=== PATIENT | male | born 1925 | race Caucasian/White ===

== ENCOUNTER → 2016-10-27 | Outpatient (CLI) | payer OTHER ==
[~2016-10-27] MED LIST: AMOXICILLIN 50500 MG PO; ATORVASTATIN CA10 MG PO; COUMADIN 4 MG TA4 M1 PO; DILTIAZEM 24HR240 M1 PO; FUROSEMIDE 40 M40 M1 PO; LISINOPRIL10 MG PO; METOPROLOL SUCC25 M1 PO; NISOLDIPINE17 MG PO; ONE DAILY MULT1 EAC2 PO; POTASSIUM20 PO
== END ==
LOC: CAT 12:45
DX: J90 Pleural effusion, not elsewhere classified (principal); R18.8 Other ascites

== ENCOUNTER 2017-01-25 15:27 | Inpatient (IN) | payer OTHER ==
[~2017-01-25] VITALS: Ht 170.2 cm; Wt 50.3 kg
--- NOTE | ~2017-01-25 | CNG ---
[facility] [place] [address] CYTO-NONGYN REPORT PROCEDURE Name: RAMANA DE LA CRUZ Room #: 246-P ADM IN M.R.#: [id number] Admission: 01/25/17 Date of : [birth year] Discharge: Report #: [id number] Path Case #: [id number] CYTOPATHOLOGY REPORT COLLECTION DATE: 01/26/2017 RECEIVED DATE: 01/26/2017 SUBMITTING PHYS: Dr. Micah Sr OTHER PHYS: Dr. Gabriel Newman CLINICAL HISTORY: SOA, AFIB RVR, Pleural effusion, CHF. SPECIMEN(S) RECEIVED: A.Pleural fluid, Left * * * * * * * * * * * * FINAL DIAGNOSIS: A. Pleural fluid, Left: - No malignant cells identified. Mesothelial cells and predominantly chronic inflammatory cells present in a background of debris. PATHOLOGIST: Virginia Peralta M.D. REPORT ELECTRONICALLY SIGNED BY: Virginia Peralta M.D. DATE/TIME: 01/27/2017 13:56 * * * * * * * * * * * * GROSS PATHOLOGY: A. Pleural fluid, Left: The specimen is submitted unfixed, labeled "Ramana De La Cruz". Received by the Cytology Department is 25 mL of clear yellow fluid. One ThinPrep slide and a formalin fixed cell block were prepared. (clt 01.26.2017) CLOTH PATTERN MAKER(S): LENA Cisneros([facility]) INITIAL CPT CODE(S): A; 68472, 92797 Professional services performed by [facility] at [facility] [address], [place] [address] Technical services performed by [facility] at [address] [place] [address]., [address], [place] [address]. [facility] [address] [place] [address], [address] [facility] [address] [place] [address] CYTO-NONGYN REPORT PROCEDURE Name: RAMANA DE LA CRUZ Room #: 246-P ADM IN M.R.#: [id number] Admission: 01/25/17 Date of : [birth year] Discharge: Report #: [id number] Path Case #: [id number] [place] [address] PHONE: [phone] DIRECTOR: Dillan Lee M.D. * * * END OF REPORT * * *
--- NOTE | ~2017-01-25 | HC ---
[facility] [place] [address] CONSULTATION Name: RAMANA DE LA CRUZ Room #: 458-P [facility] IN M.R.#: [id number] Admission: 01/25/17 Attend Phys: Micah Sr DO Discharge: Date of : [birth year] Report #: [id number] THIS REPORT FOR: //name// CC: Gabriel Sr HISTORY OF PRESENT ILLNESS: An 89-year-old male who is known to myself. He had 2-3 days of increasing shortness of breath and dyspnea. He states somebody cut back his diuretic, I am not sure if this is true. He has been maintained on Lasix 40, metoprolol 25, potassium, warfarin, atorvastatin and a baby aspirin. He has permanent underlying AFib. I saw him in November. He had recently been hospitalized at [facility] prior to that for some questionable TIA, but that had resolved. His Lasix was stopped at that time for elevated creatinine, but this is a baseline creatinine in the 2-3 range. He is anticoagulated on Coumadin and has been therapeutic. There have been no current events. His ejection fraction has been 30-35% with severe aortic valve stenosis somewhere in the 0.7-0.8 cm2, moderate MR and TR and that was from an echo done in October, but not significantly changed. He has had no syncope, but definitely someone who had failure to thrive. He lives with his daughter, Carlitos. 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 PAST MEDICAL HISTORY: Positive for an aortic valve replacement, which is showing some significant stenosis here. He had a recent echo done here in December and EF was 20% with significant diastolic dysfunction, biatrial enlargement, prosthetic mechanical aortic valve with a moderate gradient, but acceptable. Mitral annular calcification with mild MR and TR and a PA pressure of 40. I will review the echo from the office to look in at a higher gradient across the aortic valve. PAST MEDICAL HISTORY: Positive for the prosthetic aortic valve as I stated, DJD, hypertension, hypercholesterolemia, stomach cancer, prior tobacco, COPD and hernia repair. FAMILY HISTORY: Negative for premature coronary disease. ALLERGIES: No known drug allergies. SOCIAL HISTORY: He is , five children. He has a beer a day. He has lived on the farm his whole life. No current tobacco. PHYSICAL EXAMINATION: GENERAL: He is mildly dyspneic. He has oxygen in place. VITAL SIGNS: Blood pressure 126/60, pulse 70s and irregular (he did initially present with AFib, RVR on 5 mg Cardizem currently). HEENT: Eyes reveal arcus senilis, no xanthelasmas. Pharynx has dry mucous membranes. NECK: Shows preserved upstrokes, mild JVD is noted. [facility] [address] [place] [address] CONSULTATION Name: DOROTHYRAMANA AN Room #: 458-P [facility] IN M.R.#: [id number] Admission: 01/25/17 Attend Phys: Micah Sr DO Discharge: Date of : [birth year] Report #: [id number] LUNGS: Have prolonged expiratory phase, diminished in the bases bilaterally. CARDIOVASCULAR: Irregularly irregular, S1. Mechanical second heart sound, faint systolic murmur. ABDOMEN: Slightly protuberant, nontender. There is some tenderness in the right lower quadrant. EXTREMITIES: Reveal trace edema. Distal pulses diminished. NEUROLOGIC: Nonfocal. SKIN: Warm and dry with multiple areas of some actinic keratosis and some mild venous stasis changes in the lower extremities. MUSCULOSKELETAL: Generalized arthritic changes. I did not ambulate him. ASSESSMENT: 1. Acute on chronic systolic failure. 2. 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 3. 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 4. Chronic kidney disease, stage IV. 5. Primary hypertension. 6. Hypercholesterolemia. 7. Degenerative joint disease. 8. Persistent/permanent atrial fibrillation. DIAGNOSTIC DATA: The CT of the chest reveals moderately large bilateral pleural effusions with bibasilar atelectasis. There is a small amount of abdominal pelvic ascites. Chest x-ray has bilateral infiltrates and atelectasis changes with effusions, left greater than right. LABORATORY WORK: Creatinine 2.8, potassium 4.4. His creatinine has been in the 2 since 2013. Troponin is 0.23, not diagnostic in light of his renal failure and age. His proBNP is 70,000. H and H is 10.2 and 32, white count 5000 and platelets 189. RECOMMENDATIONS AND PLAN: We will give IV Lasix tonight. We will continue the low dose Cardizem drip. We will continue chronic anticoagulation, although no need to do anything right now with INR of 2.7, repeat daily INR. May need also pulmonary to weigh in on his bilateral effusions with consider to a possible thoracentesis here, diuresis, daily weights, fluid and sodium restriction and we will continue to follow with you. <ELECTRONICALLY SIGNED> By: Gabriel Torres MD, FACC 01/30/17 1646 2211 0040 Gabriel Torres MD, FACC /nt
--- NOTE | ~2017-01-25 | HC ---
[facility] [place] [address] CONSULTATION Name: RAMANA DE LA CRUZ JR Room #: 246-P [facility] IN M.R.#: [id number] Admission: 01/25/17 Attend Phys: Micah Sr DO Discharge: Date of : [birth year] Report #: [id number] THIS REPORT FOR: //name// CC: Gabriel Sr PRIMARY CARE PHYSICIAN: Ming Newman DO REFERRAL PHYSICIAN: Micah Sr DO REASON FOR REFERRAL: Acute respiratory distress. HISTORY OF PRESENT ILLNESS: The patient is an 89-year-old white male who presented to the Emergency Room with progressive dyspnea. He was found to have bilateral pleural effusion. The patient was also found to be in atrial fibrillation with rapid ventricular response. He has been treated for heart failure. Earlier today, he underwent left thoracentesis. Shortly after the procedure, patient complained of severe dyspnea. A stat portable chest x-ray shows approximately 15-20% left-sided pneumothorax. A pulmonary consultation was requested. The patient appears dyspneic in moderate distress. He denies any chest pain. Otherwise, history is somewhat limited as patient is in moderate distress. PAST MEDICAL HISTORY: Notable for coronary artery disease with severe ischemic cardiomyopathy, ejection fraction approximately 15%; status post prosthetic aortic valve with moderate gradient; chronic systolic heart failure; chronic kidney disease, stage 4; hypertension; degenerative joint disease; hypercholesterolemia; pulmonary atrial fibrillation; COPD; history of tobacco use and history of gastric cancer. PAST SURGICAL HISTORY: As mentioned above including herniorrhaphy. ALLERGIES: None to medications. HOME MEDICATIONS: List reviewed. These include lisinopril, Lasix, diltiazem, Coumadin, Toprol, potassium supplements, aspirin, Lipitor and multivitamins. FAMILY HISTORY: Noncontributory. SOCIAL HISTORY: He is . He has 5 children. History suggests he drinks about beer a day. He denies any history of tobacco use. Medical directive DNR as of earlier today. REVIEW OF SYSTEMS: [facility] [address] [place] [address] CONSULTATION Name: RAMANA DE LA CRUZ Room #: 246-P [facility] IN ..#: [id number] Admission: 01/25/17 Attend Phys: Micah Sr DO Discharge: Date of : [birth year] Report #: [id number] Deferred as patient is in moderate respiratory distress. PHYSICAL EXAMINATION: GENERAL: On exam, he is tachypneic. Appears frail and weak. VITAL SIGNS: Temperature is 97.4 degrees Fahrenheit, pulse is 70, respiratory rate is 22, blood pressure 142/79 mmHg and saturation 93%. HEENT: Normocephalic and atraumatic. NECK: Supple without any lymphadenopathy or thyromegaly. CHEST: Breath sounds are decreased bilaterally. No obvious wheezes. Few scattered crackles in the bases. CARDIOVASCULAR: Irregularly irregular. No obvious murmurs or gallop. Pulses are 2+/4+ bilaterally. ABDOMEN: Soft and nontender. No organomegaly or masses felt. GENITOURINARY: Deferred. RECTAL: Deferred. EXTREMITIES: No cyanosis, clubbing or edema. LABORATORY DATA: Chest x-ray shows oizxguio-jx-hjele bilateral pleural effusion, greater in the left than the right. CT chest and abdomen and pelvis showing bilateral pleural effusion as mentioned above. It appears to be chronic and recurrent. Small mild abdominal pelvis ascites. Otherwise, no acute intraabdominal pathology seen. Thoracentesis was performed earlier today, the radiologist was able to withdraw 2200 mL of pleural fluid. Preliminary pleural fluid studies shows the RCB being 345, WBC 64, predominantly lymphocytes. The rest of the labs are pending. KUB was unremarkable, except for small left pneumothorax. Electrolytes: Sodium 144, potassium 4.0, chloride is 108 and CO2 is 22. BUN is 46 and creatinine is 2.7. His baseline creatinine appears to be in 2.5. WBC 4400, hemoglobin is 9.7 and platelets are normal. INR is 2.5. Arterial blood gas revealed pH 7.24, pCO2 32 and pO2 58 on 6 liters of O2. IMPRESSION: 1. Acute respiratory distress in this 89-year-old white male secondary to left-sided pneumothorax along with ongoing acute on chronic heart failure and bilateral pleural effusions. 2. Acute hypoxic respiratory failure due to above. 3. Acute on chronic kidney disease with metabolic acidosis with partial respiratory compensation. 4. Severe ischemic cardiomyopathy, ejection fraction approximately 15-20%, acute on chronic systolic heart failure. 5. Status post prosthetic aortic valve replacement. 6. Permanent atrial fibrillation, on chronic anticoagulation. 7. Medical directive, DNR. RECOMMENDATION: We will consult IR for placement of chest tube. Keep O2 saturation greater than 90%. Agree with morphine for dyspnea and pain control. [address] [address] CONSULTATION Name: RAMANA DE LA CRUZ Room #: 246-P [facility] IN M.R.#: [id number] Admission: 01/25/17 Attend Phys: Micah Sr, DO Discharge: Date of : [birth year] Report #: [id number] Sr along with patient's children. They are in agreement in proceeding with chest tube placement. They are also understanding that if the patient's condition deteriorates, they would proceed with comfort care. Thank you for this consultation. By: 1644 0119 JOSE MIGUEL Loredo /morris
--- NOTE | ~2017-01-25 | EKG ---
[address] [place] [address] ELECTROCARDIOGRAM REPORT Name: RAMANA DE LA CRUZ Room #: 211-P ADM IN M.R.#: [id number] Admission: 01/25/17 Attend Phys: Micah Sr DO Discharge: Date of : [birth year] Report #: [id number] THIS REPORT FOR: //name// 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: : 1925 Requested By: Jeffery Rojo Order Number: [id number] MD: Chris Pelletier Measurements Intervals [place] Rate: 100 P: [place]: QRS: -57 QRSD: 110 T: 133 QT: 366 QTc: 473 Interpretive Statements Atrial fibrillation Anterior infarct, old Nonspecific ST and T wave abnormality Compared to ECG 12/11/2016 08:43:02 No significant change was found Electronically Signed On 01-26-2017 9:50:17 CDT by Chris Pelletier [email or web address] <ELECTRONICALLY SIGNED> By: Chris Pelletier MD, [facility] 01/26/17 0950 1556 1556 Chris Pelletier MD, [facility] /EPI
--- NOTE | ~2017-01-25 | HC ---
[facility] [place] [address] CONSULTATION Name: RAMANA DE LA CRUZ Room #: 458-P [facility] IN M.R.#: [id number] Admission: 01/25/17 Attend Phys: Micah Sr DO Discharge: Date of : [birth year] Report #: [id number] THIS REPORT FOR: //name// CC: Gabriel Sr REQUESTING PHYSICIAN: Lexi nurse practitioner. REASON FOR CONSULTATION: Palliative. HISTORY OF PRESENT ILLNESS: The patient is an 89-year-old male who presented to [facility] on 01/25. At that time, he had had 2-3 days of increasing shortness of breath. He reports that he had had a decrease in his diuretic recently. The patient additionally has underlying atrial fibrillation. He also has a history of severe CHF. His ejection fraction recently had been 30%-35% with severe aortic valve stenosis and moderate MR and TR from an echo in October. On echocardiogram here, it was 20%, found to have pneumothorax and additional significant pleural effusion, currently with chest tube with significant drainage, suspected to have acute exacerbation of systolic heart failure, thus causing acute hypoxic respiratory failure. The patient, at this time, reports that he has improvement in his overall feelings of dyspnea and improvement as far as no significant pain or discomfort. He has concern for his overall condition and has been discussing with several physicians that his overall prognosis is poor. The patient is amenable at this time to any efforts that may get him to home. PAST MEDICAL HISTORY: Significant for combined congestive heart failure, aortic valve stenosis, mitral regurg, tricuspid regurg, atrial fibrillation with past history of RVR, history of non-ST elevation myocardial infarction. PAST SURGICAL HISTORY: Dental extraction, history of aortic valve replacement. SOCIAL HISTORY: Former smoker. Daughter is first contact for patient, currently DNR status, was living at home with his daughter previous to hospitalization. ALLERGIES: No known drug allergies. MEDICATIONS: Prior to arrival, he was on lisinopril 10 mg daily, Lasix 40 mg daily, diltiazem 240 mg daily, warfarin 2 mg daily, Toprol 25 mg half tab daily, potassium chloride 10 mEq daily, aspirin 81 mg daily and Lipitor 10 mg daily. FAMILY HISTORY: Noncontributory. REVIEW OF SYSTEMS: GENERAL: The patient denies any significant recent weight changes. Has a [facility] [address] [place] [address] CONSULTATION Name: RAMANA DE LA CRUZ Room #: 458-P [facility] IN M.R.#: [id number] Admission: 01/25/17 Attend Phys: Micah Sr DO Discharge: Date of : [birth year] Report #: [id number] history longstanding of edema. RESPIRATORY: Shortness of breath, cough noted, though these are improved. CARDIOVASCULAR: Denies current chest pain. ABDOMEN: Denies nausea, vomiting, constipation or diarrhea. NEUROLOGIC: Denies significant memory loss at this time. PHYSICAL EXAMINATION: VITAL SIGNS: At visit today, pulse 104, blood pressure 116/70 on 2 liters nasal cannula. The patient was satting 98%, respirations 16, temperature 36.7. GENERAL: The patient is alert. He is oriented x 3, no acute distress at this time. HEENT: Extraocular muscles appear intact. Normocephalic and atraumatic. RESPIRATORY: Lungs are clear to auscultation bilaterally with the exception of lower lobes blunted respiratory sounds, does have some minimal crackles otherwise. CARDIOVASCULAR: irregular without murmurs. ABDOMEN: Soft, nontender to palpation. S4. EXTREMITIES: Moves all extremities without difficulty. NEUROLOGIC: Appears to have good attention level, alert. LABORATORY DATA: Include hemoglobin 8.9, platelet 134. INR 2.1, creatinine 3.7, albumin 2.5. ASSESSMENT AND PLAN: 1. Acute hypoxic respiratory failure. This is again secondary to congestive heart failure most likely and also due to pneumothorax. In addition, I have discussed with the patient with regards to the management of this. The patient is amenable to some sort of hospice management. I have discussed with him extensively today and spent approximately 30 minutes on advanced care planning. I was trying to reach daughter today, unfortunately was unable to reach, left a message with her with regards to care. The patient confirmed ps-lgq-yhwdnkiseoj status. The patient is amenable to either he would prefer home hospice or hospice facility dedicated. 2. Pneumothorax, status post chest tube. Appreciate pulmonary recs. 3. Severe ischemic cardiomyopathy, ejection fraction 20%. Again contributing to above. 4. Pleural effusion as above. I will continue to follow with this patient with regards to care and hopefully will reach patient's daughter tomorrow with whom he would like me to discuss with regards to care outpatient from the hospital setting. By: 1807 0713 Luke Weir, DO /nt
--- NOTE | ~2017-01-25 | HC ---
[facility] [place] [address] CONSULTATION Name: RAMANA DE LA CRUZ Room #: 246-P [facility] IN M.R.#: [id number] Admission: 01/25/17 Attend Phys: Micah Sr DO Discharge: Date of : [birth year] Report #: [id number] THIS REPORT FOR: //name// CC: Gabriel Sr REASON FOR CONSULTATION: CKD. REASON FOR PRESENTATION: Shortness of breath. HISTORY OF PRESENT ILLNESS: This is an 89-year-old with advanced cardiomyopathy, who has terminal heart failure with an ejection fraction of around 20%. He is also known to have aortic valve replacement. He has very significant valvular abnormality. He is followed by Dr. Torres. He carries a diagnosis of chronic kidney disease with a creatinine of around 2.0. He presented with worsening shortness of breath. He has had repeated issues with pleural effusion. His shortness of breath was constant and getting worse. There was no edema. He presented to the hospital for further evaluation and management. He had the thoracentesis that was complicated by left pneumothorax. I was consulted to manage his chronic kidney disease. PAST MEDICAL HISTORY: 1. Status post aortic valve replacement with restenosis. 2. Terminal heart failure with ejection fraction of around 20%. 3. Hypertension. 4. COPD. 5. Hyperlipidemia. 6. Stomach cancer. FAMILY HISTORY: The daughter is significant for hypertension. ALLERGIES: No known drug allergies. SOCIAL HISTORY: He is . He actually lives in a farm with his family. MEDICATIONS: 1. Tamsulosin. 2. Warfarin. 3. Atorvastatin. 4. Metoprolol. 5. Aspirin. 6. Furosemide. REVIEW OF SYSTEMS: GENERAL: No fever or chills. CARDIOVASCULAR: Significant for chest pain and shortness of breath. [facility] [address] [place] [address] CONSULTATION Name: DOROTHYRAMANA NATALIYA Room #: 246-P [facility] IN M.R.#: [id number] Admission: 01/25/17 Attend Phys: Micah Sr DO Discharge: Date of : [birth year] Report #: [id number] PULMONARY: Significant for shortness of breath. GASTROINTESTINAL: No nausea or vomiting. GENITOURINARY: No frequency, no urgency. NEUROLOGICAL: Significant for weakness. PHYSICAL EXAMINATION: GENERAL: The patient is in the ICU. VITAL SIGNS: Most recent vitals revealed a blood pressure of 89/35. HEAD AND NECK: No jugular venous distention. CHEST: Decreased air entry bilaterally with crackles. CARDIOVASCULAR: No rub detected. ABDOMEN: Soft, nontender. LOWER EXTREMITIES: No edema. ASSESSMENT, IMPRESSION, PLAN: 1. Chronic kidney disease. 2. Pulmonary edema. 3. Pleural effusion, status post pneumothorax. 4. Terminal heart failure. 5. Multivalvular issues. This seems to be a very terminal and grim overall prognosis. His kidney function seems to be stable as he is maintained his creatinine in the 2.5-3 range. We will initiate IV diuresis. He is status post thoracentesis with complicated pneumothorax, status post chest tube. He is on plenty of blood pressure medications and his blood pressure is on the low side. I will talk with the Cardiology team about backing off some of his blood pressure medications. He is currently maintained on metoprolol, Cardizem, PETROS inhibitor which has been held. I will reduce the dose of his Lasix. Unfortunately, this is a very narrow therapeutic window and I am not really sure how much can we attain in this situation. We will address with the family members. <ELECTRONICALLY SIGNED> By: Suzanne Toribio MD 01/29/17 0803 0749 0815 Suzanne Toribio MD /nt
--- NOTE | ~2017-01-25 | EKG ---
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 : 1925 Requested By: Micah Sr Order Number: [id number] MD: Chris Pelletier Measurements Intervals [place] Rate: 77 P: [place]: QRS: -15 QRSD: 133 T: 45 QT: 452 QTc: 512 Interpretive Statements Atrial fibrillation ventricular premature complexes Nonspecific intraventricular conduction delay Poor R wave progression Baseline wander in lead(s) V4,V5 Compared to ECG 01/25/2017 15:56:55 Ventricular premature complex(es) now present Electronically Signed On 01-30-2017 7:56:05 CDT by Chris Pelletier [email or web address] <ELECTRONICALLY SIGNED> By: Chris Pelletier MD, FACC 01/30/17 0756 1601 1601 Chris Pelletier MD, [facility] /EPI
[~2017-01-25 15:27] MED LIST changes: +ASPIR 8181 MG PO; +CENTRUM SILVER1 EAC2 PO; +COUMADIN 2 MG TA2 M1 PO; +COUMADIN 3 MG TA3 M1 PO; +FLOMAX0.4 MG PO; +KEFLEX500 MG PO; +KLOR-CON 1010 MEQ PO; +LASIX 20 MG TAB20 MG PO; +LIPITOR 10 MG10 M1 PO; +LOPRESSOR25 PO; +TOPROL XL25 MG PO; +TORSEMIDE5 MG PO
[2017-01-25 15:28] VITALS: BP 128/71
[2017-01-25 16:02] LABS: ABSOLUTE NEUTROPHILS 3.2 thou/uL (1.4-8.2); BASOPHILS 0.7 % (0.0-2.0); EOSINOPHILS 1.2 % (0.0-3.0); HEMOGLOBIN 10.2 gm/dL (14.0-18.0); LYMPHOCYTES 22.5 % (24.0-44.0); MANUAL DIFF NO; MCH 30.6 pg (26.0-34.0); MCV 95.6 fL (80.0-100.0); MONOCYTES 11.8 % (1.0-8.0); PLATELET COUNT 189 thou/uL (150-400); POLYS 63.8 % (36.0-66.0); RBC 3.35 mil/uL (4.50-6.00); RDW 17.9 % (10.5-14.5); WBC 5.1 thou/uL (4.0-11.0)
[2017-01-25 16:04] LABS: CALCIUM 8.1 mg/dL (8.5-10.1); CREATININE 2.8 mg/dL (0.7-1.3); POTASSIUM 4.4 mmol/L (3.5-5.1)
[2017-01-25 16:13] LABS: ALBUMIN 3.4 g/dL (3.4-5.0); TOTAL BILIRUBIN 0.5 mg/dL (<0.1-1.0); TOTAL PROTEIN 6.8 g/dL (6.4-8.2); TROPONIN-I 0.23 ng/mL (<0.04-0.07)
[2017-01-25 16:15] LABS: INR 2.7; PROTIME 25.8 Seconds (9.3-11.4)
[2017-01-25 17:17] VITALS: BP 125/69
[2017-01-25 18:57] VITALS: BP 136/71
[2017-01-25 20:03] VITALS: BP 127/60
[2017-01-25 22:49] LABS: CALCIUM 7.9 mg/dL (8.5-10.1); CREATININE 2.7 mg/dL (0.7-1.3); POTASSIUM 4.4 mmol/L (3.5-5.1)
[2017-01-25 22:50] LABS: MAGNESIUM 2.2 mg/dL (1.8-2.4)
[2017-01-25 23:20] VITALS: BP 129/81
[2017-01-26] VITALS (14 sets, daily range): BP systolic 65–143; BP diastolic 37–79
[2017-01-26 03:59] LABS: ALBUMIN 3.1 g/dL (3.4-5.0); CALCIUM 8.1 mg/dL (8.5-10.1); CREATININE 2.6 mg/dL (0.7-1.3); MAGNESIUM 2.1 mg/dL (1.8-2.4); POTASSIUM 4.1 mmol/L (3.5-5.1); TOTAL BILIRUBIN 0.5 mg/dL (<0.1-1.0); TOTAL PROTEIN 6.7 g/dL (6.4-8.2)
[2017-01-26 09:15] LABS: HEMATOCRIT 31.6 % (42.0-52.0); HEMOGLOBIN 9.9 gm/dL (14.0-18.0); MCHC 31.4 g/dL (28.0-37.0); MCV 95.4 fL (80.0-100.0); RBC 3.31 mil/uL (4.50-6.00); RDW 17.7 % (10.5-14.5); WBC 4.4 thou/uL (4.0-11.0)
[2017-01-26 09:29] LABS: CALCIUM 8.3 mg/dL (8.5-10.1); CREATININE 2.7 mg/dL (0.7-1.3)
[2017-01-26 09:30] LABS: INR 2.5; PROTIME 25.7 Seconds (9.3-11.4)
[2017-01-26 12:29] LABS: CLARITY CLEAR; COLOR YELLOW; TOTAL VOLUME 57 mL
[2017-01-26 12:42] LABS: BF NUCLEATED CELLS 64; BF RBC 345
[2017-01-26 13:01] LABS: MANUAL DIFF YES
[2017-01-26 13:03] LABS: BF MACROPHAGE 46; BF NEUTROPHILS 3
[2017-01-26 15:57] LABS: ABG SAMPLE TYPE ARTERIAL; BE(vivo) -12.7 mmol/L (-2 to +3); HCO3 13.5 mmol/L (22.0-26.0); O2(CT) 13.2 mL/dL (15.0-23.0); PO2 58.9 mmHg (80.0-100.0); STICK SITE R.BRACHIAL; pH 7.243 (7.360-7.450); sO2 86.5 % (92.0-98.0); tCO2 14.5 mmol/L (24.0-30.0)
[2017-01-26 17:11] LABS: HEMATOCRIT 31.7 % (42.0-52.0); MCH 30.6 pg (26.0-34.0); MCHC 31.5 g/dL (28.0-37.0); MCV 97.2 fL (80.0-100.0); PLATELET COUNT 198 thou/uL (150-400); RBC 3.27 mil/uL (4.50-6.00); RDW 18.2 % (10.5-14.5); WBC 7.3 thou/uL (4.0-11.0)
[2017-01-26 17:12] LABS: MANUAL DIFF YES
[2017-01-26 17:20] LABS: CALCIUM 8.1 mg/dL (8.5-10.1); POTASSIUM 4.3 mmol/L (3.5-5.1)
[2017-01-26 17:25] LABS: INR 2.3; PROTIME 22.9 Seconds (9.3-11.4)
[2017-01-26 17:30] LABS: ABSOLUTE NEUTROPHILS 6.2 thou/uL (1.4-8.2); ANISOCYTOSIS 1+; TOTAL CELL COUNT 100
[2017-01-27] VITALS (24 sets, daily range): BP systolic 80–106; BP diastolic 33–60
[2017-01-27 05:18] LABS: HEMATOCRIT 29.5 % (42.0-52.0); HEMOGLOBIN 9.3 gm/dL (14.0-18.0); MCH 30.2 pg (26.0-34.0); MCHC 31.5 g/dL (28.0-37.0); RBC 3.08 mil/uL (4.50-6.00); RDW 17.5 % (10.5-14.5); WBC 8.4 thou/uL (4.0-11.0)
[2017-01-27 05:30] LABS: ALBUMIN 3.3 g/dL (3.4-5.0); CREATININE 3.2 mg/dL (0.7-1.3); INR 2.5; POTASSIUM 4.9 mmol/L (3.5-5.1); PROTIME 25.2 Seconds (9.3-11.4)
[2017-01-27 13:09] LABS: BODY FLUID AMYLASE 31 U/L (()); BODY FLUID GLUCOSE 146 mg/dL (()); BODY FLUID LDH 85 IU/L (()); BODY FLUID PROTEIN 1.8 g/dL (())
[2017-01-28] VITALS (22 sets, daily range): BP systolic 85–119; BP diastolic 40–70
[2017-01-28 04:31] LABS: HEMATOCRIT 29.3 % (42.0-52.0); HEMOGLOBIN 9.3 gm/dL (14.0-18.0); MCH 30.1 pg (26.0-34.0); MCHC 31.8 g/dL (28.0-37.0); MCV 94.7 fL (80.0-100.0); RBC 3.1 mil/uL (4.50-6.00); RDW 17.3 % (10.5-14.5); WBC 8.1 thou/uL (4.0-11.0)
[2017-01-28 04:39] LABS: INR 3.3; PROTIME 33.2 Seconds (9.3-11.4)
[2017-01-28 04:41] LABS: ALBUMIN 3.1 g/dL (3.4-5.0); CALCIUM 7.8 mg/dL (8.5-10.1); PHOSPHORUS 5.5 mg/dL (2.5-4.9); POTASSIUM 4.8 mmol/L (3.5-5.1)
[2017-01-28 04:43] LABS: CREATININE 4.2 mg/dL (0.7-1.3)
[2017-01-29] VITALS (14 sets, daily range): BP systolic 97–122; BP diastolic 36–70
[2017-01-29 05:10] LABS: HEMATOCRIT 27.1 % (42.0-52.0); HEMOGLOBIN 8.7 gm/dL (14.0-18.0); MCV 93.6 fL (80.0-100.0); PLATELET COUNT 135 thou/uL (150-400); RBC 2.89 mil/uL (4.50-6.00); WBC 6.8 thou/uL (4.0-11.0)
[2017-01-29 05:18] LABS: INR 3.3; PROTIME 33.5 Seconds (9.3-11.4)
[2017-01-29 05:19] LABS: CALCIUM 7.4 mg/dL (8.5-10.1); CREATININE 4.1 mg/dL (0.7-1.3); POTASSIUM 4.5 mmol/L (3.5-5.1)
[2017-01-29 05:29] LABS: MANUAL DIFF YES
[2017-01-29 06:57] LABS: ABSOLUTE NEUTROPHILS 5.9 thou/uL (1.4-8.2); HYPOCHROMASIA 1+; TOTAL CELL COUNT 100
[2017-01-29 06:58] LABS: ANISOCYTOSIS 1+; OVALOCYTES 1+; POLYCHROMASIA OCCASIONAL; SCHISTOCYTES FEW
[2017-01-30 04:00] VITALS: BP 95/50
[2017-01-30 06:51] LABS: HEMATOCRIT 27.7 % (42.0-52.0); HEMOGLOBIN 8.9 gm/dL (14.0-18.0); MCH 29.8 pg (26.0-34.0); MCHC 31.9 g/dL (28.0-37.0); MCV 93.2 fL (80.0-100.0); PLATELET COUNT 134 thou/uL (150-400); RBC 2.98 mil/uL (4.50-6.00); RDW 16.5 % (10.5-14.5); WBC 5.8 thou/uL (4.0-11.0)
[2017-01-30 06:53] LABS: INR 2.1; MANUAL DIFF YES; PROTIME 20.8 Seconds (9.3-11.4)
[2017-01-30 07:02] LABS: ALBUMIN 2.5 g/dL (3.4-5.0); CALCIUM 7.1 mg/dL (8.5-10.1); CREATININE 3.7 mg/dL (0.7-1.3); PHOSPHORUS 4.1 mg/dL (2.5-4.9); POTASSIUM 3.7 mmol/L (3.5-5.1)
[2017-01-30 07:54] LABS: ABSOLUTE NEUTROPHILS 4.8 thou/uL (1.4-8.2); TOTAL CELL COUNT 100
[2017-01-30 07:55] LABS: ANISOCYTOSIS 1+; OVALOCYTES 1+
[2017-01-30 08:33] VITALS: BP 116/70
[2017-01-30 19:35] VITALS: BP 108/48
[2017-01-31 05:00] VITALS: BP 99/58
[2017-01-31 05:38] LABS: ALBUMIN 2.5 g/dL (3.4-5.0); CALCIUM 7.1 mg/dL (8.5-10.1); CREATININE 3.6 mg/dL (0.7-1.3); PHOSPHORUS 4.4 mg/dL (2.5-4.9); POTASSIUM 3.9 mmol/L (3.5-5.1)
[2017-01-31 08:06] VITALS: BP 93/56
[2017-01-31 13:45] VITALS: BP 100/58
[2017-01-31 15:52] VITALS: BP 95/75
[2017-01-31 21:24] VITALS: BP 137/62
[2017-02-01 04:52] VITALS: BP 108/53
[2017-02-01 06:26] LABS: ALBUMIN 2.6 g/dL (3.4-5.0); CALCIUM 7.4 mg/dL (8.5-10.1); CREATININE 3.2 mg/dL (0.7-1.3); PHOSPHORUS 4.9 mg/dL (2.5-4.9); POTASSIUM 3.8 mmol/L (3.5-5.1)
[2017-02-01 08:04] VITALS: BP 117/66
== END 2017-02-01 12:20 | disposition hospice, home (50) | DRG 291 ==
LOC: ER 15:27 → EROBS 16:59 → 2N 16:59 → ICU 01-26 20:23 → 4W 01-29 11:52
PROVIDERS: Hospitalist; Internal Medicine Cardiovascular Disease; Internal Medicine Endocrinology, Diabetes & Metabolism; Internal Medicine Geriatric Medicine; Internal Medicine Pulmonary Disease; Nurse Practitioner Gerontology; Physician Assistant
DX: I13.0 Hypertensive heart and chronic kidney disease with heart failure and stage 1 through stage 4 chronic kidney disease, or unspecified chronic kidney disease (principal); I50.43 Acute on chronic combined systolic (congestive) and diastolic (congestive) heart failure; J96.01 Acute respiratory failure with hypoxia; N18.4 Chronic kidney disease, stage 4 (severe); E87.2 Acidosis; J93.9 Pneumothorax, unspecified; E44.0 Moderate protein-calorie malnutrition; J90 Pleural effusion, not elsewhere classified; N17.9 Acute kidney failure, unspecified; Z68.1 Body mass index [BMI] 19.9 or less, adult; Z66 Do not resuscitate; I48.91 Unspecified atrial fibrillation; M19.90 Unspecified osteoarthritis, unspecified site; E78.00 Pure hypercholesterolemia, unspecified; I25.5 Ischemic cardiomyopathy; J44.9 Chronic obstructive pulmonary disease, unspecified; Z51.5 Encounter for palliative care; I95.2 Hypotension due to drugs; T46.1X5A Adverse effect of calcium-channel blockers, initial encounter; T44.7X5A Adverse effect of beta-adrenoreceptor antagonists, initial encounter; Y92.89 Other specified places as the place of occurrence of the external cause; Z95.2 Presence of prosthetic heart valve; I25.2 Old myocardial infarction; Z79.01 Long term (current) use of anticoagulants; Z85.028 Personal history of other malignant neoplasm of stomach; Z87.891 Personal history of nicotine dependence; Z79.82 Long term (current) use of aspirin; Z79.899 Other long term (current) drug therapy; Z82.49 Family history of ischemic heart disease and other diseases of the circulatory system
CPT/HCPCS: 10045; 10078; 10081